=== PATIENT | female | born 1960 | race Two or more races ===

== ENCOUNTER 2023-08-21 09:23 | Emergency (ER) | payer MEDICAID ==
[~2023-08-21] VITALS: Ht 157.5 cm; Wt 72.1 kg
[2023-08-21 10:43] LABS: Basophils # (auto) 0.1 10 ^3/uL (0-0.2); Basophils % (auto) 0.7 % (0.0-2.0); Eosinophils # (auto) 0.3 10 ^3/uL (0-0.8); Eosinophils % (auto) 4.4 % (0.0-7.0); Hematocrit 43.6 % (36.0-46.0); Hemoglobin 14.6 g/dL (12.2-16.2); Lymphocytes # (auto) 2.5 10 ^3/uL (0.4-5.4); Lymphocytes % (auto) 32.9 % (10.0-50.0); Mean Corpuscular Hemoglobin 28.9 pg (28.0-32.0); Mean Corpuscular Hgb Conc. 33.5 g/dL (32.0-36.0); Mean Corpuscular Volume 86.2 fL (80.0-100.0); Monocytes # (auto) 0.5 10 ^3/uL (0-1.3); Monocytes % (auto) 6.7 % (0.0-12.0); Neutrophils # (auto) 4.1 10 ^3/uL (1.6-8.6); Neutrophils % (auto) 55.3 % (37.0-80.0); Red Blood Cells 5.05 10^6/uL (4.0-5.20); Red Cell Distribution Width 13.3 % (11.8-14.3); White Blood Cell 7.4 10^3/uL (4.4-10.8)
[2023-08-21 11:00] LABS: Alanine Aminotransferase 26 U/L (7-40); Albumin 4.1 g/dL (3.2-4.8); Alkaline Phosphatase 154 U/L (46-116); Anion Gap 6 (5-15); Aspartate Aminotransferase 19 U/L (13-40); Blood Urea Nitrogen 17 mg/dL (9-23); Calcium 10.1 mg/dL (8.5-10.1); Carbon Dioxide 27 mmol/L (20-30); Chloride 106 mmol/L (98-107); Glucose 95 mg/dL (74-106); Potassium 3.8 mmol/L (3.5-5.1); Sodium 139 mmol/L (136-145)
[2023-08-21 11:01] LABS: Bilirubin, Total 0.4 mg/dL (0.2-1.0); Total Protein 7.2 g/dL (5.7-8.2)
[2023-08-21 14:25] VITALS: BP 170/70; PULSE 76; RESP 17; TEMP 97; O2SAT 97
[2023-08-21] MEDS ORDERED: LORA-1121 PO (14:46)
[2023-08-21 19:36] LABS: Urine Amorphous Crystal FEW /hpf (None Seen); Urine Bacteria NONE SEEN /hpf (None Seen); Urine Blood 1+ /uL (Negative); Urine Clarity Clear (Clear); Urine Color Yellow (Yellow); Urine Protein, UAD Negative (Negative); Urine Specific Gravity 1.017 (1.001-1.035); Urine Urobilinogen Normal (Negative); Urine WBC 1 /hpf (0 - 5); Urine pH 5.5 (5.0-8.0)
== END 2023-08-21 14:53 | disposition home or self-care (01) ==
LOC: ER 09:23
DX: F41.9 Anxiety disorder, unspecified (principal); R51.9 Headache, unspecified
CPT/HCPCS: 36415; 70450; 80053; 81001; 84484; 85025

== ENCOUNTER 2024-01-19 19:10 | Emergency (ER) | payer MEDICAID ==
[~2024-01-19] VITALS: Ht 157.5 cm; Wt 70.4 kg
[~2024-01-19 19:10] MED LIST: LORA-1121 PO
[2024-01-19] MEDS: cloNIDine HCL 0.1 MG TAB PO ONE (20:15)
[2024-01-19 21:14] VITALS: BP 184/100; PULSE 69; RESP 18; TEMP 98.4; O2SAT 98
[2024-01-19] MEDS: HYDROcodone-ACET 5/325MG TAB PO ONE (21:39)
[2024-01-19] MEDS ORDERED: HYDR-4902 PO (21:46)
== END 2024-01-19 21:31 | disposition home or self-care (01) ==
LOC: ER 19:10
DX: S82.832A Other fracture of upper and lower end of left fibula, initial encounter for closed fracture (principal); I10 Essential (primary) hypertension; X50.1XXA Overexertion from prolonged static or awkward postures, initial encounter; Y93.89 Activity, other specified; Y92.89 Other specified places as the place of occurrence of the external cause; Y99.8 Other external cause status
CPT/HCPCS: 29515; 73610